=== PATIENT | female | born 1950 ===

== ENCOUNTER 2016-11-21 12:02 | Emergency (ER) | payer MEDICARE, OTHER ==
[2016-11-21 12:05] VITALS: RESP 18; TEMP 98.3
--- NOTE | 2016-11-21 12:22 | ED PDOC ---
Upper Extremity Pain/Injury Time Seen by Provider: 11/21/16 12:08 Chief Complaint (Nursing): Trauma Chief Complaint (Provider): i fell and hurt my arm History Per: Patient History/Exam Limitations: no limitations Onset/Duration Of Symptoms: Hrs (<1), Sudden Onset Current Symptoms Are (Timing): Still Present Quality: Sharp Severity: Moderate Torso/Front (Pic): 1 - Tenderness, Pain Worse W/Movement Exacerbating Factor(s): Movement Additional Complaint(s): 66yo [place], [place] forward injuring R arm and lip/mouth. Denies LOC, headache or neck pain. Complains of Right upper arm pain and loss of ROM. Denies weakness, numbness or tingling to right arm or other extremities. Denies dental pain or noticing any loose teeth. Past Medical History Reviewed: Historical Data, Nursing Documentation, Vital Signs Vital Signs: Last Vital Signs Temp 98.3 F 11/21/16 12:03 Pulse 66 11/21/16 12:03 Resp 18 11/21/16 12:03 BP 131/84 11/21/16 12:03 Pulse Ox 100 11/21/16 12:03 - Medical History PMH: HTN - Surgical History Surgical History: Appendectomy Other surgeries: uterine, tonsils, sinus surgery - Family History Family History: States: Unknown Family Hx - Living Arrangements Living Arrangements: With Family - Social History Current smoker - smoking cessation education provided: No - Home Medications Home Medications: Ambulatory Orders Medication Instructions Recorded oxyCODONE/Acetaminophen [Percocet 1 tab PO Q4 PRN #16 tab 11/21/16 5/325 mg Tab] traMADol [Ultram] 50 mg PO QID #20 tab 11/21/16 - Allergies Allergies/Adverse Reactions: Allergies Allergy/AdvReac Type Severity Reaction Status Date / Time aspirin Allergy ANAPHYLAXIS Verified 11/21/16 12:03 Review of Systems ROS Statement: Except As Marked, All Systems Reviewed And Found Negative Constitutional: Negative for: Fever, Chills Cardiovascular: Negative for: Chest Pain, Palpitations Respiratory: Negative for: Cough, Shortness of Breath Gastrointestinal: Negative for: Abdominal Pain Musculoskeletal: Positive for: Shoulder Pain, Arm Pain. Negative for: Neck Pain , Back Pain, Hand Pain, Leg Pain, Foot Pain Skin: Negative for: Rash, Lesions, Jaundice Neurological: Negative for: Weakness, Numbness, Altered Mental Status, Headache , Dizziness Psych: Negative for: Depression Physical Exam - Reviewed Nursing Documentation Reviewed: Yes Vital Signs Reviewed: Yes - Physical Exam Appears: Positive for: Well, Non-toxic, No Acute Distress Head Exam: Positive for: NORMAL INSPECTION, NORMOCEPHALIC. Negative for: ATRAUMATIC (+small abrasion to central lower lip w trace bleeding, no dental trauma noted, no oropharyngeal blood) Skin: Positive for: Normal Color, Warm, DRY Eye Exam: Positive for: EOMI, Normal appearance, PERRL ENT: Positive for: Normal ENT Inspection Neck: Positive for: Normal, Painless ROM Cardiovascular/Chest: Positive for: Regular Rate, Rhythm Respiratory: Positive for: CNT, Normal Breath Sounds Gastrointestinal/Abdominal: Positive for: Bowel Sounds, Soft. Negative for: Tenderness Back: Positive for: Normal Inspection Extremity: Positive for: Tenderness (R shoulder/ upper arm pain/tender/mild edema, loss active or passive ROM), Swelling Neurologic/Psych: Positive for: Alert, director internal control II-XII (intact), Oriented. Negative for: Motor/Sensory Deficits - Laboratory Results Result Diagrams: 11/21/16 15:00 11/21/16 15:00 - ECG O2 Sat by Pulse Oximetry: 100 Medical Decision Making Medical Decision Making: "code ortho" initiated to obtain rapid pain medicine for suspicion of long bone fracture. Accession No. : [id number] Patient Name / ID : FADUMO CLAYTON / [id number] Exam Date : 11/21/2016 13:53:27 ( Approved ) Study Comment : Sex / Age : F / 66Y Creator : Romelia Valdes MD Dictator : Romelia Valdes MD Optometry Assistant : Director Custom : Romelia Valdes MD Approver2 : Report Date : 11/21/2016 15:32:00 My Comment : PROCEDURE: Radiographs of the right humerus. HISTORY: fall trauma pain COMPARISON: None. FINDINGS: BONES: Acute comminuted impacted fracture in the proximal humerus. SOFT TISSUES: Normal. OTHER FINDINGS: None. IMPRESSION: Acute comminuted impacted fracture in the proximal humerus. Discussed w Dr Santana ortho test automation architect, recommends CT imaging of arm.... Accession No. : [id number] Patient Name / ID : FADUMO CLAYTON / [id number] Exam Date : 11/21/2016 14:29:00 ( Approved ) Study Comment : Sex / Age : F / 66Y Creator : Niraj Preston Dictator : Niraj Preston Optometry Assistant : Director Custom : Niraj Preston Approver2 : Report Date : 11/21/2016 15:38:15 My Comment : PROCEDURE: CT of the right upper extremity without contrast. HISTORY: shoulder, humerus, elbow; fall/trauma COMPARISON: Comparison is made to the x-ray of the right shoulder, humerus forearm and elbow done on the same day. TECHNIQUE: Axial and reconstructed coronal and sagittal CT images of the right upper extremity were performed without IV contrast administration. 3D reconstructed images were also obtained and processed in separate workstation and submitted for evaluation. FINDINGS: There are comminuted fracture at the proximal portion of the right humerus. There is displaced mildly impacted fracture at the right humeral surgical neck. There is displaced angulated spiral fracture at the proximal to mid shaft of the right humerus associated with approximately 3 centimeter impaction of the distal portion into the proximal portion at the fracture site. There is no evidence of acute fracture or dislocation at the right elbow. There is also no evidence of acute fracture at the visualized portion of the right radius and ulnar bones. There are subcutaneous stranding and soft tissue edema seen at the proximal portion of the right arm suggestive of posttraumatic changes. No evidence of discrete hematoma or fluid collection. No evidence of dislocation at the right shoulder. IMPRESSION: Acute comminuted and displaced fractures at the right humeral surgical neck and proximal right femoral shaft. Mildly displaced comminuted fracture at the right humeral head greater tuberosity without evidence of dislocation at the right shoulder. Dr Santana reviewed CT images, recommends coaptation splint and will see in office toby. Pt and given instructions. Remains neurologically intact w +pulse, sensation and motor to distal arm/hand. Labs also performed and unremarkable except mild hypokalemia, replaced orally. SPO2 98% and remains awake and alert. Pain meds Rx. Procedure note: R arm Coaptation splint placed by / fermín w intact neurovascular status thereafter. Disposition - Clinical Impression Clinical Impression: Humeral fracture, Humeral head fracture - Patient ED Disposition Is Patient to be Admitted: No Counseled Patient/Family Regarding: Studies Performed, Diagnosis, Need For Followup, Rx Given - Disposition Referrals: Akil Santana MD [Staff Provider] - Disposition: Routine/Home Disposition Time: 16:28 Condition: STABLE Additional Instructions: Wear splint at all times. Keep arm elevated. Use pain medication as directed. You may need surgery for this injury. Its very important to see orthopedic surgeon as directed. Prescriptions: oxyCODONE/Acetaminophen [Percocet 5/325 mg Tab] 1 tab PO Q4 PRN #16 tab PRN Reason: Pain, Severe (8-10) traMADol [Ultram] 50 mg PO QID #20 tab Instructions: Arm Fracture in Adults (ED) Forms: [employer] (Mongolian)
[2016-11-21] MEDS ORDERED: HYDROmorphone 0.5 mg/0.5 ml ISec IVP STA (13:24)
[2016-11-21 14:55] VITALS: BP 122/74; PULSE 48
[2016-11-21 15:13] LABS: BASO % 0.5 % (0.0-2.0); EOS % 0.5 % (0.0-4.0); HEMATOCRIT 37.7 % (34.0-47.0); LYMPH # 2.3 K/uL (1.0-4.3); LYMPH % 23.8 % (20.0-40.0); MEAN CELL VOLUME 82.8 fl (81.0-99.0); MEAN CORPUSCULAR HEMOGLOBIN 28.1 pg (27.0-31.0); MEAN CORPUSCULAR HGB CONC 33.9 g/dL (33.0-37.0); MEAN PLATELET VOLUME 8.3 fl (7.2-11.7); MONO # 0.7 K/uL (0.0-0.8); NEUT # 6.6 K/uL (1.8-7.0); NEUT % 68.2 % (50.0-75.0); RED CELL DISTRIBUTION WIDTH 13.5 % (11.5-14.5); WHITE BLOOD COUNT 9.7 K/uL (4.8-10.8)
[2016-11-21 15:23] LABS: BLOOD UREA NITROGEN 24 mg/dl (7-17); CALCIUM 9.6 mg/dL (8.4-10.2); CARBON DIOXIDE 26 mmol/L (22-30); CHLORIDE 100 mmol/L (98-107); GFR AFRICAN-AMERICAN > 60; GLUCOSE,RANDOM 119 mg/dL (65-105); PARTIAL THROMBOPLASTIN TIME 30.4 Seconds (25.6-37.1); SODIUM 140 mmol/l (132-148)
--- NOTE | 2016-11-21 15:23 | RAD ---
PROCEDURE: Radiographs of the Right Shoulder HISTORY: fall trauma pain COMPARISON: No prior. FINDINGS: BONES: There is an acute comminuted impacted fracture in the proximal humerus. JOINTS: Normal. Glenohumeral and acromioclavicular joints preserved. SOFT TISSUES: Normal. OTHER FINDINGS: None. IMPRESSION: Acute comminuted impacted fracture in the proximal humerus.
--- NOTE | 2016-11-21 15:26 | RAD ---
PROCEDURE: Radiographs of the Right Forearm HISTORY: Fall, trauma pain COMPARISON: None available. TECHNIQUE: Frontal and lateral views obtained. FINDINGS: BONES: There is no acute displaced fracture or bone destruction. Bone alignment and mineralization are normal. JOINT SPACES: Normal. OTHER FINDINGS: None. IMPRESSION: No acute fracture or dislocation.
[2016-11-21 15:27] LABS: POTASSIUM 3.1 MMOL/L (3.6-5.0)
--- NOTE | 2016-11-21 15:27 | RAD ---
PROCEDURE: Radiographs of the right elbow. HISTORY: fall trauma pain COMPARISON: No prior. FINDINGS: BONES: There is no acute displaced fracture or bone destruction. JOINTS: Normal. No osteoarthritis. SOFT TISSUES: Normal. JOINT EFFUSION: None. OTHER FINDINGS: None. IMPRESSION: No acute fracture or dislocation.
--- NOTE | 2016-11-21 15:29 | RAD ---
PROCEDURE: CHEST RADIOGRAPH, 1 VIEW HISTORY: fall R arm trauma COMPARISON: None available. FINDINGS: LUNGS: The lungs are clear. PLEURA: No pneumothorax or pleural fluid seen. CARDIOVASCULAR: Normal. OSSEOUS STRUCTURES: Acute fracture in the right humerus. Diffuse bone demineralization. VISUALIZED UPPER ABDOMEN: Normal. OTHER FINDINGS: None. IMPRESSION: No acute findings.
--- NOTE | 2016-11-21 15:33 | RAD ---
PROCEDURE: Radiographs of the right humerus. HISTORY: fall trauma pain COMPARISON: None. FINDINGS: BONES: Acute comminuted impacted fracture in the proximal humerus. SOFT TISSUES: Normal. OTHER FINDINGS: None. IMPRESSION: Acute comminuted impacted fracture in the proximal humerus.
--- NOTE | 2016-11-21 15:40 | CT ---
PROCEDURE: CT of the right upper extremity without contrast. HISTORY: shoulder, humerus, elbow; fall/trauma COMPARISON: Comparison is made to the x-ray of the right shoulder, humerus forearm and elbow done on the same day. TECHNIQUE: Axial and reconstructed coronal and sagittal CT images of the right upper extremity were performed without IV contrast administration. 3D reconstructed images were also obtained and processed in separate workstation and submitted for evaluation. FINDINGS: There are comminuted fracture at the proximal portion of the right humerus. There is displaced mildly impacted fracture at the right humeral surgical neck. There is displaced angulated spiral fracture at the proximal to mid shaft of the right humerus associated with approximately 3 centimeter impaction of the distal portion into the proximal portion at the fracture site. There is no evidence of acute fracture or dislocation at the right elbow. There is also no evidence of acute fracture at the visualized portion of the right radius and ulnar bones. There are subcutaneous stranding and soft tissue edema seen at the proximal portion of the right arm suggestive of posttraumatic changes. No evidence of discrete hematoma or fluid collection. No evidence of dislocation at the right shoulder. IMPRESSION: Acute comminuted and displaced fractures at the right humeral surgical neck and proximal right femoral shaft. Mildly displaced comminuted fracture at the right humeral head greater tuberosity without evidence of dislocation at the right shoulder.
[2016-11-21 16:25] VITALS: O2SAT 100
[2016-11-21] MEDS ORDERED: Potassium Chloride 20 mEq ER Tab PO ONE ×2 (16:27→16:49)
== END 2016-11-21 18:36 | disposition home or self-care (01) ==
LOC: H.ER 12:02
DX: S42.291A Other displaced fracture of upper end of right humerus, initial encounter for closed fracture (principal); W19.XXXA Unspecified fall, initial encounter; E87.6 Hypokalemia; I10 Essential (primary) hypertension
CPT/HCPCS: 29125; 71010; 73030; 73060; 73080; 73090; 73200; 80048; 84484; 85025; 85610; 85730; 96372; 96374; 96375; 96376; 99285; J1170; J2270